=== PATIENT | male | born 2000 | race Two or more races ===

== ENCOUNTER 2023-06-08 21:01 | Emergency (ER) | payer OTHER ==
[~2023-06-08] VITALS: Ht 177.8 cm; Wt 238.0 kg
[2023-06-08 21:01] VITALS: BP 126/75; PULSE 77; RESP 20; O2SAT 94
== END 2023-06-08 23:21 | disposition left against medical advice (07) ==
LOC: ER 21:01
DX: R10.9 Unspecified abdominal pain (principal); R11.2 Nausea with vomiting, unspecified; Z53.21 Procedure and treatment not carried out due to patient leaving prior to being seen by health care provider